=== PATIENT | female | born 1990 | race African-American/Black ===

== ENCOUNTER → 2017-01-13 | Outpatient (CLI) | payer BC ==
--- NOTE | 2017-01-13 16:52 | RAD ---
Pelvic ultrasound, 01/13/2017: History: Left-sided pain Transabdominal scans were obtained. The uterus measures 7.6 x 5.3 x 4.1 cm. It demonstrates a normal central uterine echo. The right ovary measures 2.1 x 1.4 x 2.5 cm while the left ovary measures 4.3 x 2.4 x 2.9 cm. Several small follicular cysts are present in the left ovary. Blood flow is present in both ovaries. No adnexal mass is seen. A small amount of free fluid is noted in the cul-de-sac. This amount of fluid can be on a physiologic basis. IMPRESSION: 1. Small amount of free fluid in the pelvis. 2. The pelvic ultrasound is otherwise unremarkable.
== END | disposition home or self-care (01) ==
LOC: US 14:55
PROVIDERS: ATTEND Family Medicine
DX: R10.32 Left lower quadrant pain (principal)
CPT/HCPCS: 76856